=== PATIENT | male | born 1990 | race Asian ===

== ENCOUNTER 2021-06-13 17:38 | Emergency (ER) | payer BC ==
[~2021-06-13] VITALS: Ht 185.4 cm; Wt 78.2 kg
[2021-06-13 17:57] VITALS: BP 124/88
[2021-06-13] MEDS ORDERED: CYCL-1 PO (20:08)
== END 2021-06-13 20:27 | disposition home or self-care (01) ==
LOC: ER 17:39
DX: S13.4XXA Sprain of ligaments of cervical spine, initial encounter (principal); R07.89 Other chest pain; V89.2XXA Person injured in unspecified motor-vehicle accident, traffic, initial encounter; Y93.89 Activity, other specified; Y92.89 Other specified places as the place of occurrence of the external cause; Y99.8 Other external cause status
CPT/HCPCS: 71045; 93005; 99283